=== PATIENT | female | born 1965 | race Caucasian/White ===

== ENCOUNTER 2020-10-13 03:34 | Inpatient (IN) | payer MEDICAID, SELFPAY ==
[~2020-10-13] VITALS: Ht 167.6 cm; Wt 92.5 kg
[2020-10-13 03:40] VITALS: BP_SYST 154
--- NOTE | 2020-10-13 03:40 | NUR ---
DR. PARKER IN TRIAGE FOR PT EVALUATION.
--- NOTE | 2020-10-13 03:42 | NUR ---
PT TO BED 4 FOR EVALUATION, REPORT TO KIKA SANCHEZ.
[2020-10-13] MEDS ORDERED: NACL 0.9% 1,000 ML IV ONE ×2 (03:45→07:30)
[2020-10-13] MEDS ORDERED: MORPHINE 4 MG INJ. 4 MG/ML VIAL IVP ONE ×2 (03:45→06:00)
[2020-10-13] MEDS ORDERED: ONDANSETRON HCL 4 MG/2 ML VIAL IVP ONE (03:45)
--- NOTE | 2020-10-13 03:45 | NUR ---
PT AAO AND AMBULATORY REPORTING SUDDEN ONSET OF ABDOMINAL PAIN SINCE YESTERDAY WITH EPISODE OF VOMITING. PT REPORTS CURRENT PAIN LEVEL 10/10 ON PAIN SCALE.
[2020-10-13 04:06] LABS: BILIRUBIN,URINE NEGATIVE (NEGATIVE); CLARITY/URINE CLEAR (CLEAR); COLOR,URINE YELLOW (YELLOW); GLUCOSE,URINE NEGATIVE (NEGATIVE); KETONES,URINE NEGATIVE (NEGATIVE); LEUKOCYTE ESTERASE ,URINE NEGATIVE (NEGATIVE); NITRITE, URINE NEGATIVE (NEGATIVE); PROTEIN URINE NEGATIVE (NEGATIVE); UROBILINOGEN,URINE 0.2 (0.2-1.0)
[2020-10-13 04:07] LABS: BLOOD, URINE TRACE (NEGATIVE)
[2020-10-13 04:25] LABS: BASOPHILS # (AUTO) 0.1 K/uL (0.0-0.2); BASOPHILS % (AUTO) 0.9 % (0.0-2.0); EOSINOPHILS # (AUTO) 0.1 K/uL (0.0-0.4); EOSINOPHILS % (AUTO) 1.1 % (0.0-4.0); HEMATOCRIT 36.4 % (36-48); HEMOGLOBIN 11.6 g/dL (12.0-16.0); LYMPHOCYTES # (AUTO) 2.7 K/uL (1.0-5.5); LYMPHOCYTES % (AUTO) 19.8 % (20.5-51.5); MEAN CORPUSCULAR HEMOGLOBIN 27 pg (27-31); MEAN CORPUSCULAR HGB CONC 32 % (32-36); MEAN CORPUSCULAR VOLUME 83 fL (79.0-98.0); MONOCYTES % (AUTO) 7.2 % (1.7-9.3); NEUTROPHILS # (AUTO) 9.5 K/uL (1.8-7.7); PLATELET COUNT (AUTO) 300 K/uL (130-430); RED BLOOD CELL COUNT(AUTO) 4.38 MIL/uL (4.2-6.2); WHITE BLOOD COUNT (AUTO) 13.4 K/uL (4.8-10.8)
[2020-10-13 04:29] LABS: CALCIUM 8.9 mg/dL (8.4-11.0); CREATININE 0.65 mg/dL (0.55-1.30); POTASSIUM 3.7 mmol/L (3.5-5.1)
--- NOTE | 2020-10-13 04:30 | NUR ---
Radiology bedside for US Study, pt in stable condition
[2020-10-13 04:35] LABS: ALBUMIN 3.4 g/dL (3.4-4.8); TOTAL BILIRUBIN 0.7 mg/dL (0.0-1.0)
[2020-10-13 05:01] LABS: BACTERIA,URINE FEW /HPF (None Seen); WBC,URINE 0-3 /HPF (0-3)
--- NOTE | 2020-10-13 05:28 | NUR ---
VSS, pt responding to possible adm, and applying for hospital emergency medi olga
[2020-10-13] MEDS ORDERED: MORPHINE 4 MG INJ. 4 MG/ML VIAL ONE (05:54)
[2020-10-13] MEDS ORDERED: PIPERACILLIN/TAZO 3.375 GM in NS 50 ML IV ONE (06:15)
[2020-10-13] MEDS ORDERED: PIPERACILLIN/TAZOBACTAM 3.375 GM/VIAL (ZOSYN) IV ONE (06:37)
--- NOTE | 2020-10-13 06:38 | NUR ---
Covid Mayuri test done and sent to lab
--- NOTE | 2020-10-13 06:40 | NUR ---
ADMISSION ORDERS RECEIVED FROM DR. LAU FOR MED SURG ADMIT. BED ORDERED AWAITING COVID RESULTS FOR BED ASSIGNMENT.
[2020-10-13] MEDS ORDERED: D5/0.45 NS 1,000 ML IV SCH ×2 (06:45→07:30)
--- NOTE | 2020-10-13 07:10 | NUR ---
assumed care of pt. resting no request, does rate abd. pain 3/10 but states tolerable. POC discussed waiting for covid result to transfer to med surg.
[2020-10-13] MEDS ORDERED: DILTIAZEM HCL 25 MG/5 ML VIAL IVP ONE (07:30)
[2020-10-13] MEDS ORDERED: ASPIRIN 325 MG TABLET PO ONE (07:30)
--- NOTE | 2020-10-13 07:50 | NUR ---
Dr. Stephens at bedside for GI consult.
--- NOTE | 2020-10-13 08:10 | NUR ---
Dr. Leon at bedside for surgery consult
--- NOTE | 2020-10-13 08:40 | NUR ---
ADMISSION: The patient, LEENA BOYKIN, 55 y/o, F admitted by CLEOPATRA LAU MD, was given written information regarding hospital policies, unit procedures and contact persons. Valuables were checked.
--- NOTE | 2020-10-13 08:42 | NUR ---
Patient will be admitted to care of Admitted to med surg unit. Will go to room 118A. Belongings list completed. Complete and up to date summary report printed. SBAR report to be given at bedside with opportunity for questions.
--- NOTE | 2020-10-13 09:00 | NUR ---
Opening note Received report from ER. Patient is alert and oriented x4. On room air and tolerating well with no signs of shortness of breath noted. IV in left AC, saline locked with no signs of infiltration noted. Bed locked and in lowest position. Call light within reach. Will continue to monitor.
[2020-10-13 09:02] VITALS: BP_SYST 156
--- NOTE | 2020-10-13 10:00 | NUR ---
PATIENT LEFT FOR HIDA SCAN. WILL WAIT FOR RETURN ON UNIT.
--- NOTE | 2020-10-13 10:02 | NUR ---
Nutrition Update Nino Scale 18 noted. Pt admitted for cholelithiasis. Diet: NPO BMI: 32.9 kg/m2 RD to follow per nutrition care standards.
[2020-10-13] MEDS ORDERED: HYDROcodone/ACETAMIN 10-325 MG TAB PO PRN (13:45)
[2020-10-13] MEDS ORDERED: HYDROcodone/ACETAMIN 5-325 MG TAB (NORCO/ VICODIN) PO PRN (13:45)
[2020-10-13] MEDS ORDERED: ONDANSETRON HCL 4 MG/2 ML VIAL IVP PRN (13:45)
[2020-10-13] MEDS: D5/0.45 NS 1,000 ML IV SCH ×2 (13:45→23:31)
[2020-10-13] MEDS ORDERED: NALOXONE HCL 0.4 MG/ML AMP (NARCAN) IVP PRN ×3 (13:45)
[2020-10-13] MEDS ORDERED: MORPHINE 2 MG/ML INJ. SYRINGE IVP PRN (13:45)
[2020-10-13] MEDS ORDERED: MORPHINE 4 MG INJ. 4 MG/ML VIAL IVP PRN (13:45)
[2020-10-13] MEDS ORDERED: LORazepam 2 MG/ML VIAL IVP PRN (13:45)
--- NOTE | 2020-10-13 13:46 | NUR ---
CONSULTATION PAGED REASON FOR CONSULTATION:[facility] WAS CONSULT CALLED?Y PERSON WHO WAS NOTIFIED:EMERSON CONSULTING PHYSICIAN:GINA PAYNE CLINICAL TRIAL COORDINATOR SPECIALTY:SURGEON CLINICAL TRIAL COORDINATOR PHONE NUMBER:[phone] REQUESTING PHYSICIAN:CLEOPATRA CARBALLO
[2020-10-13] MEDS ORDERED: ACETAMINOPHEN 325 MG TABLET PO PRN (15:30)
[2020-10-13 16:00] VITALS: BP_SYST 113
--- NOTE | 2020-10-13 18:45 | NUR ---
CLOSING NOTE Patient is alert and oriented x4. On room air and tolerating well with no signs of shortness of breath noted. IV in left AC, saline locked with no signs of infiltration noted. Bed locked and in lowest position. Call light within reach. Will endorse to night nurse.
--- NOTE | 2020-10-13 19:30 | NUR ---
Opening notes Received report. Patient is resting in bed, no signs of distress noted. Breathing even and unlabored on room air. Complains of headache. Will administer PRN pain medication. IV patent and intact, infusing fluids. Ambulatory with steady gait. No assistance necessary. No other needs. Call light with the patient. Safety precautions in place.
[2020-10-13 20:00] VITALS: BP_SYST 145
[2020-10-13] MEDS: ACETAMINOPHEN 325 MG TABLET PO PRN (20:02)
[2020-10-14 00:13] VITALS: BP_SYST 128
[2020-10-14] MEDS: ACETAMINOPHEN 325 MG TABLET PO PRN ×2 (05:17→10:05)
[2020-10-14 06:27] LABS: BASOPHILS # (AUTO) 0.1 K/uL (0.0-0.2); EOSINOPHILS # (AUTO) 0.2 K/uL (0.0-0.4); EOSINOPHILS % (AUTO) 2.2 % (0.0-4.0); HEMATOCRIT 33.3 % (36-48); HEMOGLOBIN 10.9 g/dL (12.0-16.0); LYMPHOCYTES # (AUTO) 2.8 K/uL (1.0-5.5); LYMPHOCYTES % (AUTO) 33.9 % (20.5-51.5); MEAN CORPUSCULAR HEMOGLOBIN 27 pg (27-31); MEAN CORPUSCULAR HGB CONC 33 % (32-36); MEAN CORPUSCULAR VOLUME 83 fL (79.0-98.0); MONOCYTES # (AUTO) 0.9 K/uL (0.0-1.0); MONOCYTES % (AUTO) 10.9 % (1.7-9.3); NEUTROPHILS # (AUTO) 4.3 K/uL (1.8-7.7); PLATELET COUNT (AUTO) 268 K/uL (130-430); RED BLOOD CELL COUNT(AUTO) 4.02 MIL/uL (4.2-6.2); RED CELL DISTRIBUTION WIDTH 14.1 % (9.0-15.0); WHITE BLOOD COUNT (AUTO) 8.2 K/uL (4.8-10.8)
[2020-10-14 06:50] LABS: ALBUMIN 2.9 g/dL (3.4-4.8); CALCIUM 8.4 mg/dL (8.4-11.0); CREATININE 0.68 mg/dL (0.55-1.30); POTASSIUM 3.6 mmol/L (3.5-5.1); TOTAL BILIRUBIN 0.9 mg/dL (0.0-1.0)
--- NOTE | 2020-10-14 07:11 | NUR ---
Closing notes Patient is resting in bed, no signs of distress noted. Breathing even and unlabored on room air. No complaints of pain at this time. IVF infusing well. All needs met throughout the shift. Call light with the patient. Safety precautions in place. Will endorse care to dayshift RN.
--- NOTE | 2020-10-14 07:30 | NUR ---
GI MD SINHA SPOKE WITH DR. CAMERON, SAW PATIENT, MD AWARE THAT DR. ALCAZAR DID NOT RECOMMEND SURGERY, DR. CAMERON STATED GALL BLADDER SHOULD BE REMOVED, UP TO DR. LAU IF HE WANTS TO CONSULT WITH A DIFFERENT SURGEON. NO NEW ORDERS. Addendum: 10/14/20 at 0735 by April Costa RN STATED PATIENT HAS A CYSTIC DUCT OBSTRUCTION.
--- NOTE | 2020-10-14 07:40 | NUR ---
OPENING NOTES PATIENT AWAKE, A&OX4, ON ROOM AIR WITHOUT SIGNS OF RESPIRATORY DISTRESS, DENIES PAIN, LEFT AC 20 GAUGE PATENT, WITHOUT SIGNS OF INFILTRATION AND IV FLUIDS RUNNING ORDERED, BED IN LOWEST POSITION,BRAKES LOCKED, BED ALARM ON, CALL LIGHT WITHIN REACH, ON FALL AND SAFETY PRECAUTIONS.
[2020-10-14 08:00] VITALS: BP_SYST 131
[2020-10-14] MEDS: D5/0.45 NS 1,000 ML IV SCH (08:59)
--- NOTE | 2020-10-14 10:30 | NUR ---
MD BHARATH LAU SAW PATIENT. TOLD HER HE WAS GOING TO DISCHARGE HER TODAY.
[2020-10-14 11:24] VITALS: BP_SYST 117
[2020-10-14] MEDS ORDERED: IBUP-1969 PO (13:05)
[2020-10-14 14:27] VITALS: BP_SYST 117
--- NOTE | 2020-10-14 15:05 | NUR ---
D/C Patient Patient given medication reconciliation form and D/C instructions. Exit Care provided. Patient verbalized understanding. MD discussed with patient the results and treatment provided. Patient transported via wheelchair. Patient in stable condition, ID band removed. IV catheter removed, intact and dressing applied, no active bleeding. Rx of given. Patient educated on pain management. All belongings sent with patient. Daughter Taty picked patient up in private vehicle.
== END 2020-10-14 15:05 | disposition home or self-care (01) ==
LOC: SED 03:34 → SMU 06:37
PROVIDERS: ADMIT Preventive Medicine Preventive Medicine/Occupational Environmental Medicine; ATTEND Preventive Medicine Preventive Medicine/Occupational Environmental Medicine
DX: K80.11 Calculus of gallbladder with chronic cholecystitis with obstruction (principal); D72.829 Elevated white blood cell count, unspecified; R73.9 Hyperglycemia, unspecified; Z20.822 Contact with and (suspected) exposure to COVID-19; R74.01 Elevation of levels of liver transaminase levels; E66.9 Obesity, unspecified; Z68.32 Body mass index [BMI] 32.0-32.9, adult
CPT/HCPCS: 36415; 74181; 76700-TC; 78226; 80053; 81000; 83690; 84443; 85025; 96361; 96365; 96375; 96376; 99285; A9537; J2270; J2405; J2543